=== PATIENT | male | born 1990 | race Caucasian/White ===

== ENCOUNTER 2024-02-08 15:53 | Outpatient (REF) | payer SELFPAY ==
[2024-02-08 16:51] LABS: ALT 29 U/L (16-63); AST 21 U/L (15-37); Albumin 4.4 g/dL (3.4-5.0); Alkaline Phosphatase 91 U/L (46-116); Anion Gap 9.3 mmol/L (3-11); BUN 15 mg/dL (7-18); Bilirubin, Total 0.6 mg/dL (0.2-1.0); CO2 26.7 mmol/L (21.0-32.0); CREATININE 0.8 mg/dL (0.70-1.30); Calcium 9.1 mg/dL (8.5-10.1); Calculated LDL 114 mg/dL (<100); Chloride 106 mmol/L (98-107); Cholesterol 170 mg/dL (<200); Estimated GFR 121.34 (mL/min/1.73m2); Glucose 93 mg/dL (74-106); HDL Cholesterol 39 mg/dL (40-60); Potassium 3.8 mmol/L (3.5-5.1); Sodium 142 mmol/L (136-145); Total Protein 7.1 g/dL (6.4-8.2); Triglyceride 87 mg/dL (<150)
== END 2024-02-08 15:54 | disposition home or self-care (01) ==
LOC: NCHCN 15:53
PROVIDERS: Visit Provider Family Medicine
DX: E66.9 Obesity, unspecified (principal)
CPT/HCPCS: 80053; 80061